=== PATIENT | male | born 1965 | race Caucasian/White ===

== ENCOUNTER 2016-10-07 09:17 | Inpatient (IN) | payer OTHER ==
[~2016-10-07 09:17] MED LIST: ACETAMINOPHEN325 MG PO; AMARYL4 MG PO; AMBIEN10 MG PO; ASPIR 8181 MG PO; ASPIRIN EC81 MG PO; CARDIZEM CD240 MG PO; CELEXA20 MG PO; COREG12.5 MG PO; GLUCOPHAGE1000 MG PO; GLUCOPHAGE500 MG PO; LANOXIN250 MCG PO; LANTUS100 UNIT/1 SQ; LASIX20 MG PO; MAGNESIUM OXID400 MG PO; NEURONTIN800 MG PO; OMEPRAZOLE40 MG PO; PREDNISONE10 MG PO; SPIRIVA18 MCG IH; SYMBICORT 16010.2 GM IH; SYNTHROID300 MCG PO; TESSALON PERLE100 MG PO; VITAMIN D35000 UNI1 PO; XARELTO20 MG PO; XOPENEX HFA15 GM IH; ZESTRIL40 MG PO; ZOCOR10 MG PO
--- NOTE | 2016-10-08 10:47 | NUR ---
0930- HERE TO SEE AND ASSESS PT AT THIS TIME. UPDATED ON PT CONDITION. PT WITH NO DISTRESS. M.6 N/O'S NOTED.
[2016-10-13] MEDS ORDERED: ZESTRIL10 MG PO (08:56)
[2016-10-13] MEDS ORDERED: GLUCOPHAGE1000 MG PO (08:57)
[2016-10-13] MEDS ORDERED: ZOCOR20 MG PO (08:57)
[2016-10-13] MEDS ORDERED: OMEPRAZOLE40 MG PO (08:57)
[2016-10-13] MEDS ORDERED: BUSPIRONE HCL5 MG PO (08:57)
[2016-10-13] MEDS ORDERED: NEURONTIN600 MG PO (08:58)
[2016-10-13] MEDS ORDERED: COREG12.5 MG PO (08:58)
[2016-10-13] MEDS ORDERED: VITAMIN D35000 UNI1 PO (08:58)
[2016-10-13] MEDS ORDERED: ASPIRIN EC81 MG PO (08:59)
[2016-10-13] MEDS ORDERED: LASIX40 MG PO (08:59)
[2016-10-13] MEDS ORDERED: SPIRIVA18 MCG IH (08:59)
[2016-10-13] MEDS ORDERED: SYMBICORT 16010.2 GM IH (09:00)
[2016-10-13] MEDS ORDERED: AMARYL4 MG PO (09:00)
[2016-10-13] MEDS ORDERED: CARDIZEM CD240 MG PO (09:00)
[2016-10-13] MEDS ORDERED: SYNTHROID300 MCG PO (09:00)
[2016-10-13] MEDS ORDERED: MAGNESIUM OXID400 MG PO (09:01)
[2016-10-13] MEDS ORDERED: LANOXIN250 MCG PO (09:01)
[2016-10-13] MEDS ORDERED: AMBIEN10 MG PO (09:02)
[2016-10-13] MEDS ORDERED: XOPENEX HFA15 GM IH (09:02)
[2016-10-13] MEDS ORDERED: XARELTO20 MG PO (09:04)
[2016-10-13] MEDS ORDERED: CELEXA20 MG PO (09:04)
[2016-10-13] MEDS ORDERED: ACETAMINOPHEN325 MG PO (09:04)
== END 2016-10-11 16:27 | disposition home or self-care (01) | DRG 304 ==
LOC: ER 09:17 → ICU 20:25 → MED 10-09 08:59
PROVIDERS: ADMIT Internal Medicine
DX: I16.1 Hypertensive emergency (principal); I50.33 Acute on chronic diastolic (congestive) heart failure; I11.0 Hypertensive heart disease with heart failure; E11.9 Type 2 diabetes mellitus without complications; E83.42 Hypomagnesemia; F41.9 Anxiety disorder, unspecified; F32.9 Major depressive disorder, single episode, unspecified; G47.33 Obstructive sleep apnea (adult) (pediatric); I25.10 Atherosclerotic heart disease of native coronary artery without angina pectoris; Z90.49 Acquired absence of other specified parts of digestive tract; Z79.01 Long term (current) use of anticoagulants; Z79.84 Long term (current) use of oral hypoglycemic drugs; Z79.82 Long term (current) use of aspirin; Z79.4 Long term (current) use of insulin; Z79.899 Other long term (current) drug therapy; Z83.3 Family history of diabetes mellitus; I48.0 Paroxysmal atrial fibrillation; J44.9 Chronic obstructive pulmonary disease, unspecified; E87.6 Hypokalemia; I45.10 Unspecified right bundle-branch block
CPT/HCPCS: 36415; 97161-GP; J1650

== ENCOUNTER 2016-10-07 09:17 | Emergency (ER) | payer OTHER ==
[2016-10-13] MEDS ORDERED: ZESTRIL10 MG PO (08:56)
[2016-10-13] MEDS ORDERED: BUSPIRONE HCL5 MG PO (08:57)
[2016-10-13] MEDS ORDERED: OMEPRAZOLE40 MG PO (08:57)
[2016-10-13] MEDS ORDERED: GLUCOPHAGE1000 MG PO (08:57)
[2016-10-13] MEDS ORDERED: ZOCOR20 MG PO (08:57)
[2016-10-13] MEDS ORDERED: COREG12.5 MG PO (08:58)
[2016-10-13] MEDS ORDERED: NEURONTIN600 MG PO (08:58)
[2016-10-13] MEDS ORDERED: VITAMIN D35000 UNI1 PO (08:58)
[2016-10-13] MEDS ORDERED: LASIX40 MG PO (08:59)
[2016-10-13] MEDS ORDERED: SPIRIVA18 MCG IH (08:59)
[2016-10-13] MEDS ORDERED: ASPIRIN EC81 MG PO (08:59)
[2016-10-13] MEDS ORDERED: AMARYL4 MG PO (09:00)
[2016-10-13] MEDS ORDERED: SYNTHROID300 MCG PO (09:00)
[2016-10-13] MEDS ORDERED: CARDIZEM CD240 MG PO (09:00)
[2016-10-13] MEDS ORDERED: SYMBICORT 16010.2 GM IH (09:00)
[2016-10-13] MEDS ORDERED: LANOXIN250 MCG PO (09:01)
[2016-10-13] MEDS ORDERED: MAGNESIUM OXID400 MG PO (09:01)
[2016-10-13] MEDS ORDERED: AMBIEN10 MG PO (09:02)
[2016-10-13] MEDS ORDERED: XOPENEX HFA15 GM IH (09:02)
[2016-10-13] MEDS ORDERED: XARELTO20 MG PO (09:04)
[2016-10-13] MEDS ORDERED: ACETAMINOPHEN325 MG PO (09:04)
[2016-10-13] MEDS ORDERED: CELEXA20 MG PO (09:04)
== END 2016-10-07 20:24 | disposition critical access hospital (66) ==
LOC: ER 09:17
DX: I50.9 Heart failure, unspecified (principal); I10 Essential (primary) hypertension; E11.9 Type 2 diabetes mellitus without complications; I48.91 Unspecified atrial fibrillation; I48.92 Unspecified atrial flutter; F41.9 Anxiety disorder, unspecified; E03.9 Hypothyroidism, unspecified; J44.9 Chronic obstructive pulmonary disease, unspecified; K21.9 Gastro-esophageal reflux disease without esophagitis; F32.9 Major depressive disorder, single episode, unspecified; Z87.891 Personal history of nicotine dependence; Z90.89 Acquired absence of other organs; Z79.82 Long term (current) use of aspirin; Z79.899 Other long term (current) drug therapy; Z79.4 Long term (current) use of insulin; Z79.84 Long term (current) use of oral hypoglycemic drugs
CPT/HCPCS: 36415; 96365; 96366; 96375; J1650